=== PATIENT | male | born 1935 | race Caucasian/White ===

== ENCOUNTER → 2016-08-13 | Outpatient (CLI) | payer MEDICARE, OTHER ==
--- NOTE | 2016-08-15 12:24 | CT ---
EXAM DESCRIPTION: Lumbar Spine CLINICAL HISTORY: 81 years, Male, M51.16 COMPARISON: None TECHNIQUE: Lumbar CT with thin-section axial imaging with reconstructed MPR images reviewed as well. This exam was performed according to our departmental dose-optimization program, which includes automated exposure control, adjustment of the mA and/or kV according to patient size and/or use of iterative reconstruction technique. FINDINGS: CT of the lumbar spine with MPR reformatted images demonstrates severe multilevel degenerative disc disease and facet arthropathy with extensive prior posterior element surgery with modest S-shaped scoliosis of the spine convex to the left in the lower lumbar spine with reversal of the contour in the thoracolumbar region. There are six nonrib-bearing lumbar vertebra with a transitional sixth segment at the lumbosacral junction with a well-developed but likely nonmobile disc space between this vertebra and the remainder of the sacrum. For purposes of this study the transitional segment will be labeled L5 and the first nonrib-bearing vertebra labeled T12. Vacuum phenomenon and disc space narrowing at all levels except the transitional L5/S1 level is noted. Previous laminectomy and spinous process removal beginning at the T12/L1 level and continuing distally to the L4-5 level is present with preservation of the facet joints but medial bilateral laminectomy and spinous process removal from lower T12 through upper L5 level noted. Schmorl's node in the superior endplate of the transitional L5 segment is noted with degenerative disc narrowing at L4-5 and vacuum phenomena noted with disc narrowing and endplate irregularity from T12-L1 through L3-4. The central spinal canal appears adequately decompressed posteriorly throughout the lumbar spine with significant facet arthropathy and no malalignment of the vertebral bodies anteriorly. Modest bilateral narrowing of the T12 and L1 neural foramina from disc space narrowing is apparent as well as facet arthropathy. The L2 neural foramina are modestly narrowed from degenerative arthropathy and disc narrowing as well. Moderate narrowing of the right L3 neural foramen and right L4 neural foramen from facet disease disc narrowing and scoliosis is apparent with patent left L3 neural foramen and facet arthropathy encroaching upon the left L4 neural foramen. The neural foramina at the transitional L5 level are patent bilaterally. Impression: 1. Modest scoliosis extensive prior posterior element surgery from lower T12 to upper L5 level with spinous process removal and medial laminectomy bilaterally as well as advanced multilevel degenerative disc changes from T12-L1 through L4-5 with a relatively normal appearing disc space between the transitional L5 segment and the remainder of the sacrum. 2. Satisfactorily decompressed spinal canal posteriorly with multilevel foraminal narrowing as described above. 3. A large lateralizing disc herniation is not apparent on this noncontrast examination. 4. No evidence of aortic aneurysm or paraspinous mass noted. Electronically signed by: Francesco López MD 08/15/2016 12:22 PM CDT
== END | disposition home or self-care (01) ==
LOC: CT 10:16
PROVIDERS: ATTEND Psychiatry & Neurology Neurology
DX: M51.16 Intervertebral disc disorders with radiculopathy, lumbar region (principal)

== ENCOUNTER → 2016-08-24 | Outpatient (CLI) | payer MEDICARE, OTHER ==
--- NOTE | 2016-08-24 14:57 | CT ---
EXAM DESCRIPTION: CTA Runoff CLINICAL HISTORY: 81 years, Male, I73.8 COMPARISON: None TECHNIQUE: Rapid bolus administration of IV contrast was performed with thin-section axial scanning of the abdomen, pelvis and bilateral lower extremities performed in a dynamic fashion. Reconstructed multiplanar and three dimensional MIP images created on a separate dedicated workstation are reviewed along with the source axial images and stored in the patient's medical record. This exam was performed according to our department minimal dose optimization program which includes automated exposure control, adjustment of mA and/or kV according to patient size and/or use of iterative reconstructed techniques. Stenosis was calculated based on NASCET Criteria. FINDINGS: Atherosclerotic disease is noted within every vessel on today's exam. 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 The SMA demonstrates atherosclerotic mild narrowing of significantly less than 50%. The origin of the right renal artery demonstrates roughly 30-40% narrowing. No left renal artery narrowing. Scattered atherosclerotic disease noted within bilateral lower extremity vessels, but no significant narrowing to the level of the trifurcations bilaterally. The anterior left tibial artery is completely occluded proximally. The posterior tibial and peroneal arteries on the left are seen to the level of the ankle. The right anterior tibial artery is completely occluded within its mid extent. The posterior tibial artery and the peroneal artery are visualized to the level of the right ankle. Lung bases are clear. The solid organs the straight no abnormal enhancement or mass. Diverticulosis of the colon without evidence of diverticulitis. Small bowel is unremarkable. The prostate is enlarged measuring 5.1 cm. IMPRESSION: Scattered atherosclerotic disease noted. 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 Retrograde flow is noted via patent superior mesenteric artery. Electronically signed by: Pradeep Christie MD 08/24/2016 2:56 PM CDT
== END | disposition home or self-care (01) ==
LOC: CT 08:58
PROVIDERS: ATTEND Psychiatry & Neurology Neurology
DX: I70.293 Other atherosclerosis of native arteries of extremities, bilateral legs (principal)